=== PATIENT | female | born 1955 | race Asian ===

== ENCOUNTER 2018-07-07 06:14 | Day surgery (SDC) | payer MEDICARE, OTHER, BC ==
[2018-07-07] MEDS ORDERED: PROPOFOL 40 ML (08:41)
[2018-07-07] MEDS ORDERED: LIDOCAINE 100 MG SYRINGE (08:41)
[2018-07-07] MEDS ORDERED: LABETALOL HCL 20MG INJ IV (10:30)
[2018-07-07] MEDS ORDERED: DIPHENHYDRAMINE 50 MG INJ IV (10:30)
[2018-07-07] MEDS ORDERED: MIDAZOLAM 1 MG/ML 2 ML INJ IV (10:30)
[2018-07-07] MEDS ORDERED: OXYCODONE/ACETAMINOPHEN (5/325) TAB PO ×2 (10:30)
[2018-07-07] MEDS ORDERED: FENTAnyl 50 MCG/ML VIAL IV ×3 (10:30)
[2018-07-07] MEDS ORDERED: ONDANSETRON 4 MG INJ IV (10:30)
[2018-07-07] MEDS ORDERED: IPRATROPIUM (NEB) 0.5 MG/2.5 ML AMP HHN (10:30)
[2018-07-07] MEDS ORDERED: ALBUTEROL 0.083% (NEB) 2.5 MG/3 ML AMP HHN (10:30)
[2018-07-07] MEDS ORDERED: TRIMETHOBENZAMIDE 100 MG/ML VIAL IM (10:30)
[2018-07-07] MEDS ORDERED: HYDROmorphONE 1 MG/5 ML IV SYRINGE IV ×3 (10:30)
[2018-07-07] MEDS ORDERED: MEPERIDINE 25 MG INJ IV (10:30)
[2018-07-07] MEDS ORDERED: hydrALAzine 20 MG INJ IV (10:30)
[2018-07-07] MEDS ORDERED: EPHEDrine SULFATE 50 MG/5 ML SYG IV (10:30)
== END 2018-07-07 12:26 | disposition home or self-care (01) ==
LOC: GIL 06:14
DX: Z12.11 Encounter for screening for malignant neoplasm of colon (principal); K62.0 Anal polyp; K64.8 Other hemorrhoids; I10 Essential (primary) hypertension; E11.9 Type 2 diabetes mellitus without complications; E78.5 Hyperlipidemia, unspecified
CPT/HCPCS: 45380; 82962; 88305